=== PATIENT | female | born 1985 | race Caucasian/White ===

== ENCOUNTER 2018-02-18 05:53 | Inpatient (IN) | payer BC ==
[2018-02-18] MEDS ORDERED: TERBUTALINE 1 MG/ML VIAL SQ PRN (06:04)
[2018-02-18] MEDS ORDERED: METHYLERGONOVINE 0.2 MG/ML 1 ML AMP IM PRN (06:04)
[2018-02-18] MEDS ORDERED: OXYTOCIN 10 UNIT/ML 1 ML VIAL IM PRN (06:04)
[2018-02-18] MEDS ORDERED: CARBOPROST TROMETHAMINE 250 MCG/ML 1 ML AMP IM PRN (06:04)
[2018-02-18] MEDS ORDERED: LIDOCAINE 0.5% (PF) 5 MG/ML (50 ML SDV) SQ PRN (06:04)
[2018-02-18] MEDS: LACTATED RINGERS 1,000 ML IV SCH ×3 (06:28→12:29)
[2018-02-18] MEDS: OXYTOCIN 20 UNITS/1000 ML NS 1,000 ML IV SCH ×2 (06:32→16:36)
[2018-02-18 06:44] LABS: Basophils % (A) 0 %; Eosinophils # (A) 0.1 k/uL (0-0.7); Eosinophils % (A) 1 %; HCT 35.4 % (34.0-46.0); HGB 12.2 gm/dL (11.4-16.0); Lymphocytes # (A) 2.4 k/uL (1.0-4.8); Lymphocytes % (A) 20 %; MCHC 34.5 g/dL (31.0-37.0); MCV 92.9 fL (80.0-100.0); Mean Platelet Volume 7.2; Monocytes # (A) 0.4 k/uL (0-1.0); Monocytes % (A) 3 %; Neutrophils # (A) 8.9 k/uL (1.3-7.7); Neutrophils % (A) 74 %; Platelet Count 190 k/uL (150-450); RBC 3.81 m/uL (3.80-5.40); RDW 14.4 % (11.5-15.5)
[2018-02-18 07:46] VITALS: BMI 36.2
--- NOTE | 2018-02-18 09:03 | P.HPOB ---
History of Present Illness H&P Date: 02/18/18 Chief Complaint: IUP @ 39 6/7 weeks This is a 32-year-old 4 para 10-1 at 39-6/7 weeks estimated due date of 1218. Patient presents to labor and delivery for elective induction of labor. Patient has a history of macrosomia. 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 Patient has been receiving routine care with myself since 8 weeks of gestation. Estimated due date is based on last menstrual period equal to a first trimester ultrasound. On blood work showed a blood type of O+, rubella immune, RPR nonreactive, hepatitis B surface antigen negative, HIV negative, she did pass her 3-hour gestational diabetes screen. Group B strep was negative on 01/21 Review of Systems Constitutional: Denies chills, Denies fatigue, Denies fever Ears, nose, mouth and throat: Denies headache Cardiovascular: Reports leg edema Respiratory: Denies cough, Denies dyspnea Gastrointestinal: Denies constipation, Denies diarrhea, Denies nausea, Denies vomiting Genitourinary: Reports Past Medical History Past Medical History: No Reported History Additional Past Medical History / Comment(s): Patient borderline diabetic History of Any Multi-Drug Resistant Organisms: None Reported Past Surgical History: Appendectomy, Hernia Repair Past Anesthesia/Blood Transfusion Reactions: No Reported Reaction Smoking Status: Former smoker Past Alcohol Use History: None Reported Past Drug Use History: None Reported - Past Family History Father Family Medical History: Diabetes Mellitus Medications and Allergies Home Medications Medication Instructions Recorded Confirmed Type Ferrous Gluconate [Iron] 236 mg PO ONCE 02/18/18 02/18/18 History 78/Iron/Folate 1/Dha 1 tab PO ONCE 02/18/18 02/18/18 History [Prenate Dha Softgel] Allergies Allergy/AdvReac Type Severity Reaction Status Date / Time No Known Allergies Allergy Verified 02/18/18 06:02 Exam Osteopathic Statement: *. No significant issues noted on an osteopathic structural exam other than those noted in the History and Physical/Consult. Vital Signs Temp Pulse Resp BP Pulse Ox 02/18/18 06:02 97.2 F L 90 16 140/86 97 Intake and Output 02/17/18 02/18/18 02/18/18 22:59 06:59 14:59 Other: Weight 117.934 kg Tardive physical exam was done this morning. Gen. this is a well-nourished well -developed female in no acute distress. She has nonlabored breathing and lungs are clear to auscultation bilaterally, heart is noted to have regular rate and rhythm, abdomen is gravid and appropriate for gestational age, extremities are noted to have trace edema, heart tones were noted to be reassuring with moderate variability she is sunil every 3 minutes, on vaginal exam her cervix is to be 4/80/-2 amniotomy is performed and clear fluid was obtained. Results Result Diagrams: 02/18/18 06:20 Abnormal Lab Results - Last 24 Hours (Table) 02/18/18 Range/Units 06:20 WBC 12.0 H (3.8-10.6) k/uL Neutrophils # 8.9 H (1.3-7.7) k/uL Assessment and Plan (1) Term Current Visit: Yes Status: Acute Code(s): Z34.80 - ENCOUNTER FOR SUPRVSN OF NORMAL , UNSP TRIMESTER SNOMED Code(s): 91490832 Plan: Patient is admitted for Pitocin induction of labor, she does desire epidural for pain control throughout labor we will call anesthesia once she requests this. Anticipate spontaneous vaginal delivery later today.
[2018-02-18] MEDS ORDERED: fentaNYL (PF) 50 MCG/ML 5 ML AMP ONE (11:49)
[2018-02-18] MEDS ORDERED: SODIUM CHLORIDE 0.9% 100 ML BAG ONE (11:49)
[2018-02-18] MEDS ORDERED: ROPIVACAINE 5MG/ML 20ML VIAL ONE (11:49)
[2018-02-18] MEDS ORDERED: diphenhydrAMINE 50 MG/ML 1 ML VIAL IVP PRN ×2 (14:59)
[2018-02-18] MEDS ORDERED: HYDROCORTISONE 2.5% RECTAL CREAM 30 GM TUBE RECTAL PRN (14:59)
[2018-02-18] MEDS ORDERED: ACETAMINOPHEN TAB 325 MG TAB PO PRN (14:59)
[2018-02-18] MEDS ORDERED: ZOLPIDEM 5 MG TAB PO PRN (14:59)
[2018-02-18] MEDS ORDERED: BENZOCAINE/MENTHOL SPRAY 1 GM/SPRAY AEROSOL TOPICAL PRN (14:59)
[2018-02-18] MEDS ORDERED: diphenhydrAMINE 25 MG CAP PO PRN (14:59)
[2018-02-18] MEDS ORDERED: LANOLIN CREAM 5 GM TUBE TOPICAL PRN (14:59)
[2018-02-18] MEDS ORDERED: SIMETHICONE 80 MG CHEWABLE PO PRN (14:59)
[2018-02-18] MEDS ORDERED: WITCH HAZEL 1 EACH MED..PAD TOPICAL PRN (14:59)
[2018-02-18] MEDS ORDERED: diphenhydrAMINE 50 MG CAP PO PRN (14:59)
[2018-02-18] MEDS ORDERED: OXYTOCIN 20 UNITS/1000 ML NS 1,000 ML IV SCH (15:00)
--- NOTE | 2018-02-18 15:04 | P.PROBDLV ---
Vaginal Delivery Note - . Vaginal Delivery Note: This is a very pleasant 32-year-old 4 para 10-1 at 39-6/7 weeks that presented to labor and delivery for elective induction of labor. Patient is a history of 8 lbs. 11 oz. baby and significant vaginal laceration she selected delivery today. Patient was admitted to labor and delivery Pitocin induction of labor was begun. After regular contractions were noted patient underwent amniotomy and clear fluid was obtained. Patient progressed through labor eventually becoming uncomfortable requesting an epidural. The epidural was placed by anesthesia without difficulty. Patient progressed to complete began pushing and had a normal spontaneous vaginal delivery of a viable male at 1436 with a weight of 8 lbs. 11 oz., Apgars of 8 and 9 at one and 5 minutes respectively. Infant did note a loose nuchal 2 which was delivered through. Afterwards the umbilical cord was then doubly clamped and cut after a 2 minute delay, the placenta was then delivered spontaneously intact with a three-vessel cord. The third degree vaginal laceration was noted and repaired in the usual fashion with 3-0 Rapide. Afterwards a rectal exam was performed and normal sphincter tone/rectal exam was appreciated. Uterus was noted to be firm and below the umbilicus at this time. Estimated blood loss 300 mL Patient and tolerated delivery well and are resting comfortably.
[2018-02-18] MEDS ORDERED: PRENATAL VIT-IRON-FOLIC ACID 1 EACH CAP PO ONE (15:15)
[2018-02-18] MEDS: SENNOSIDES-DOCUSATE SODIUM 1 EACH TAB PO SCH (19:37)
[2018-02-18] MEDS: IBUPROFEN 600 MG TAB PO PRN (19:37)
[2018-02-18 21:26] LABS: Basophils % (A) 0 %; Eosinophils % (A) 0 %; HCT 29.7 % (34.0-46.0); Lymphocytes # (A) 1.9 k/uL (1.0-4.8); Lymphocytes % (A) 13 %; MCH 30.8 pg (25.0-35.0); MCHC 33.2 g/dL (31.0-37.0); Mean Platelet Volume 7.4; Monocytes # (A) 0.5 k/uL (0-1.0); Monocytes % (A) 3 %; Neutrophils % (A) 82 %; Platelet Count 171 k/uL (150-450); RDW 14.5 % (11.5-15.5); WBC 14.7 k/uL (3.8-10.6)
[2018-02-18 21:31] LABS: HGB 9.9 gm/dL (11.4-16.0)
[2018-02-19] MEDS: IBUPROFEN 600 MG TAB PO PRN ×3 (04:19→15:56)
[2018-02-19 07:10] LABS: Basophils % (A) 0 %; Eosinophils # (A) 0.1 k/uL (0-0.7); Eosinophils % (A) 1 %; HGB 9.5 gm/dL (11.4-16.0); Lymphocytes % (A) 17 %; MCH 31.7 pg (25.0-35.0); MCHC 33.8 g/dL (31.0-37.0); MCV 93.8 fL (80.0-100.0); Mean Platelet Volume 7.5; Monocytes # (A) 0.5 k/uL (0-1.0); Monocytes % (A) 4 %; Neutrophils # (A) 9.2 k/uL (1.3-7.7); Neutrophils % (A) 77 %; Platelet Count 147 k/uL (150-450); RBC 2.98 m/uL (3.80-5.40); RDW 14.6 % (11.5-15.5)
[2018-02-19 08:41] VITALS: BP 139/91; PULSE 87; RESP 18; TEMP 97.8
[2018-02-19] MEDS: SENNOSIDES-DOCUSATE SODIUM 1 EACH TAB PO SCH (10:24)
[2018-02-19] MEDS ORDERED: PRENATAL VIT-IRON-FOLIC ACID 1 EACH CAP PO SCH (12:00)
--- NOTE | 2018-02-19 12:42 | P.DS ---
Providers Date of admission: 02/18/18 05:53 Expected date of discharge: 02/19/18 Attending physician: Terri Munoz Primary care physician: Stated None - Discharge Diagnosis(es) (1) Term Current Visit: Yes Status: Acute (2) Status post normal vaginal delivery Current Visit: Yes Status: Acute (3) Third degree perineal laceration during delivery Current Visit: Yes Status: Acute (4) Acute blood loss anemia Current Visit: Yes Status: Acute Hospital Course: This is a very pleasant 32-year-old 4 para 03/05/2001 at 39-6/7 weeks that presents to labor and delivery for elective induction of labor. Patient has a history of a 8 lbs. 11 oz. infant with a fourth degree laceration. Patient presented for elective induction of labor secondary to this. Patient was admitted to labor and delivery Pitocin induction of labor was begun patient progressed through labor once regular contractions were noted amniotomy was performed clear fluid was obtained. Patient became uncomfortable requesting an epidural which was placed by anesthesia without difficulty. Patient progressed to complete began pushing and had a normal spontaneous vaginal delivery of a viable male infant at 1436 weight of 8 lbs. 11 oz. with Apgars of 8 and 9 at one and 5 minutes respectively. Patient did sustain a third degree vaginal laceration which was repaired in usual fashion. Patient's hemoglobin was noted to decrease from 12-9.5. Patient is feeling well and wishes discharge home at 24 hours. She is ambulating and voiding without difficulty. She is tolerating a regular diet without nausea or vomiting. Her lochia is moderate at this time. Her pain is well-controlled with oral pain medication. Patient Condition at Discharge: Good Plan - Discharge Summary New Discharge Prescriptions: No Action 78/Iron/Folate 1/Dha [Prenate Dha Softgel] 1 tab PO ONCE Ferrous Gluconate [Iron] 236 mg PO ONCE Discharge Medication List Ferrous Gluconate [Iron] 236 mg PO ONCE 02/18/18 [History] 78/Iron/Folate 1/Dha [Prenate Dha Softgel] 1 tab PO ONCE 02/18/18 [ History] Follow up Appointment(s)/Referral(s): Terri Munoz DO [Doctor of Osteopathic Medicine] - 4 Weeks Patient Instructions/Handouts: Vaginal Delivery (DC), Vaginal Delivery (GEN) Discharge Disposition: HOME SELF-CARE
== END 2018-02-19 16:15 | disposition home or self-care (01) | DRG 768 ==
LOC: 4FBP 05:53
PROVIDERS: ADMIT Obstetrics & Gynecology Obstetrics; ATTEND Obstetrics & Gynecology Obstetrics
PROC: 00HU33Z Insertion of Infusion Device into Spinal Canal, Percutaneous Approach (ICD-10-PCS; principal; 2018-02-18)
PROC: 3E0R3NZ Introduction of Analgesics, Hypnotics, Sedatives into Spinal Canal, Percutaneous Approach (ICD-10-PCS; principal; 2018-02-18)
PROC: 10E0XZZ Delivery of Products of Conception, External Approach (ICD-10-PCS; principal; 2018-02-18)
PROC: 0DQR0ZZ Repair Anal Sphincter, Open Approach (ICD-10-PCS; principal; 2018-02-18)
PROC: 3E033VJ Introduction of Other Hormone into Peripheral Vein, Percutaneous Approach (ICD-10-PCS; principal; 2018-02-18)
PROC: 10907ZC Drainage of Amniotic Fluid, Therapeutic from Products of Conception, Via Natural or Artificial Opening (ICD-10-PCS; principal; 2018-02-18)
DX: O98.32 Other infections with a predominantly sexual mode of transmission complicating childbirth (principal); Z37.0 Single live birth; D62 Acute posthemorrhagic anemia; O70.20 Third degree perineal laceration during delivery, unspecified; A60.00 Herpesviral infection of urogenital system, unspecified; O69.81X0 Labor and delivery complicated by cord around neck, without compression, not applicable or unspecified; O99.02 Anemia complicating childbirth; Z3A.39 39 weeks gestation of pregnancy; Z83.3 Family history of diabetes mellitus; Z87.891 Personal history of nicotine dependence
CPT/HCPCS: 85025; 86850; 86900; 86901

== ENCOUNTER → 2018-07-03 | Outpatient (CLI) | payer BC ==
--- NOTE | 2018-07-03 14:26 | XR ---
Cervical spine HISTORY: Neck pain 5 views of the cervical spine Cervical vertebral bodies show preserved height and bone mineralization. There is minimal retrolisthe sis grade 1 C5-6, there is associated loss of disc height and spondylosis at C4-5, C5-6 and C6-7. Rev ersal the normal cervical lordosis could be due to muscle spasm. Prevertebral soft tissues are normal . Multilevel facet arthropathy changes are present. Oblique images is not optimal to assess for tabitha inal encroachment, foraminal encroachment is suspected due to lateral extension endplate to C5-6 bila terally. IMPRESSION: Degenerative disc disease, facet arthropathy, consider cervical MRI as indicated.
--- NOTE | 2018-07-03 14:28 | XR ---
Right shoulder HISTORY: Right shoulder pain 3 views of the right shoulder Bone mineralization, joint spaces and alignment are maintained. Right lung apex as visualized is norm al. IMPRESSION: No fracture or dislocation.
== END ==
LOC: RADXRMAIN 11:52
PROVIDERS: ATTEND Nurse Practitioner Family
DX: M50.30 Other cervical disc degeneration, unspecified cervical region (principal); M46.92 Unspecified inflammatory spondylopathy, cervical region; M25.511 Pain in right shoulder
CPT/HCPCS: 72050

== ENCOUNTER → 2018-07-10 | Outpatient (CLI) | payer BC ==
--- NOTE | 2018-07-10 11:04 | XR ---
EXAMINATION TYPE: XR knee complete RT DATE OF EXAM: 07/10/2018 COMPARISON: NONE HISTORY: Pain TECHNIQUE: Four views are submitted. FINDINGS: Joint spaces are preserved. Osseous structures are intact. No acute fracture seen. IMPRESSION: 1. No acute fracture or dislocation.
== END | disposition home or self-care (01) ==
LOC: RADXRMAIN 10:24
PROVIDERS: ATTEND Nurse Practitioner Family
DX: M25.561 Pain in right knee (principal)

== ENCOUNTER → 2018-07-23 | Outpatient (CLI) | payer BC, OTHER ==
--- NOTE | 2018-07-24 08:48 | MR ---
EXAMINATION TYPE: MR cervical spine wo con DATE OF EXAM: 07/23/2018 COMPARISON: Cervical spine x-rays dated 07/03/2017 HISTORY: Neck pain, Rt shoulder numbness/tingling TECHNIQUE: Multiplanar, multisequence images of the cervical spine were acquired. FINDINGS: As noted on the prior radiographs there is slight reversal of usual cervical lordosis. Mild mucosal thickening of the sphenoid sinus is seen. Vertebral bodies maintain normal vertebral body he ights and alignment. Schmorl's node is seen of the superior endplate of C7. The cervical cord is over all homogeneous in signal throughout. C2-C3: No evidence for degenerative disc disease. No disc bulge/herniation or protrusion. No Canal stenosis. Foramina are patent bilaterally. C3-C4: There is a small central disc osteophyte complex and minimal left uncovertebral hypertrophy re sulting in minimal left neural foraminal narrowing. No spinal canal stenosis nor right neural foramin al narrowing. C4-C5: There is a right paracentral disc herniation that creates narrowing of the ventral subarachnoi d space. There is also minimal uncovertebral hypertrophy. This results in very mild spinal canal sten osis without neural foraminal narrowing. C5-C6: There is a right foraminal disc herniation, broad-based disc bulge, uncovertebral hypertrophy and mild facet arthropathy creating severe right neural foraminal narrowing and right lateral spinal canal stenosis. Left neural foramen is mildly narrowed. C6-C7: There is a left paracentral disc herniation superimposed on a broad-based disc bulge with liga mentum flavum buckling and uncovertebral hypertrophy creating moderate left neural foraminal narrowin g, mild right neural foraminal narrowing and mild spinal canal stenosis. C7-T1: No evidence for degenerative disc disease. No disc bulge/herniation or protrusion. No Canal stenosis. Foramina are patent bilaterally. IMPRESSION: 1. Right foraminal disc herniation at C5-C6 impinging on the exiting nerve root creating severe right neural foraminal narrowing and mild right lateral spinal canal stenosis. 2. Right paracentral disc herniation at C4-C5 creating mild spinal canal stenosis without neural fora mackenzie narrowing. 3. Small central disc osteophyte complex at C3-C4 and degenerative disc disease resulting in minimal left neural foraminal narrowing. 4. Left paracentral disc herniation at C6-C7 creating moderate left neural foraminal narrowing, mild right neural foraminal narrowing and mild spinal canal stenosis. 5. Slight reversal usual cervical lordosis may be on the basis of muscular sprain/spasm.
== END | disposition home or self-care (01) ==
LOC: RADMRIMAIN 17:38
PROVIDERS: ATTEND Nurse Practitioner Family
DX: M54.2 Cervicalgia (principal)
CPT/HCPCS: 72141

== ENCOUNTER → 2019-10-16 | Outpatient (CLI) | payer BC, OTHER ==
--- NOTE | 2019-10-17 04:04 | MR ---
EXAMINATION TYPE: MR cervical spine wo con DATE OF EXAM: 10/16/2019 COMPARISON: None HISTORY: Neck pain, headaches, left arm weakness x 7 yrs Multiplanar multiecho imaging of the cervical spine was performed with no contrast. Cervical vertebra have normal alignment. The posterior elements are intact. There is mild posterior d isc bulging at levels from C4 to C7. There is a larger disc herniation at C6-7 and the spinal canal i s narrowed to 6.5 mm. Cervical spinal cord shows no edema. Stem is intact. There is no compression fracture. There is no evidence of cervical paraspinal mass. IMPRESSION: Mild posterior disc herniations and bulging as above there is more noticeable at C6-7. 6.5 mm spinal stenosis at C6-7.
== END | disposition home or self-care (01) ==
LOC: RADMRIMAIN 17:09
PROVIDERS: ATTEND Family Medicine
DX: M48.02 Spinal stenosis, cervical region (principal); M50.123 Cervical disc disorder at C6-C7 level with radiculopathy
CPT/HCPCS: 72141

== ENCOUNTER → 2023-01-25 | Outpatient (CLI) | payer BC ==
--- NOTE | 2023-01-25 10:39 | USB ---
Reason for Exam: Clinical finding. Patient History: Menarche at age 10. First Full-Term at age 28. Patient has history of breast feeding. Patient used Hormonal Contraceptives for 5 years. Risk Values: Yanna 5 year model risk: 0.6%. NCI Lifetime model risk: 12.2%. Technique: Method: Whole Breast Handheld. Prior Study Comparison: 04/16/2022 Bilateral MG 3D screening mammo w/cad, [facility]IN [facility]. Findings: The whole breast of the left breast, the axilla of the left breast and the retroareolar of the left breast were scanned. Small simple cyst noted at the left 2:00 position 5 cm from the nipple measures 6 mm. No solid masses identified. Clinical correlation recommended with regards to breast pain.. Overall Assessment: Benign, BI-RAD 2 Management: Screening Mammogram of both breasts in 1 year. A clinical breast exam by your physician is recommended on an annual basis and results should be correlated with mammographic findings. This exam should not preclude additional follow-up of suspicious palpable abnormalities. Results were given to the patient verbally at the time of exam. Electronically signed and approved by: Zack Almanzar M.D. Radiologis
--- NOTE | 2023-01-25 10:40 | MM ---
Reason for Exam: Clinical finding. Last screening mammogram was performed 9 month(s) ago. Indicated Problems: Pain of the left side (Focal) for 1 Year(s) : pain over 1 year uoq. Patient History: Menarche at age 10. First Full-Term at age 28. Patient has history of breast feeding. Patient used Hormonal Contraceptives for 5 years. Risk Values: Yanna 5 year model risk: 0.6%. NCI Lifetime model risk: 12.2%. Prior Study Comparison: 04/16/2022 Bilateral MG 3D screening mammo w/cad, [facility]. Tissue Density: The breast tissue is heterogeneously dense. This may lower the sensitivity of mammography. Findings: Analyzed By CAD. No evidence for mass or distortion. No suspicious mitral calcifications. Overall Assessment: Negative, BI-RAD 1 Management: Diagnostic Breast Ultrasound of the left breast. . Results were given to the patient verbally at the time of exam. Patient should continue monthly self-breast exams. A clinical breast exam by your physician is recommended on an annual basis. This exam should not preclude additional follow-up of suspicious palpable abnormalities. Note on Yanna scores and lifetime risk: 1. A Yanna score greater than 3% is considered moderate risk. If this is the case, consider specialist referral to assess eligibility for a risk reducing agent. 2. If overall lifetime risk for the development of breast cancer is 20% or higher, the patient may qualify for future screening with alternating mammogram and breast MRI. Electronically signed and approved by: Zack Almanzar M.D. Radiologis
== END | disposition home or self-care (01) ==
LOC: RADMAMWWP 09:46
PROVIDERS: ATTEND Family Medicine
DX: R92.333 Mammographic heterogeneous density, bilateral breasts (principal); N64.4 Mastodynia
CPT/HCPCS: 77062; 77066

== ENCOUNTER 2024-03-16 07:48 | Day surgery (SDC) | payer BC ==
[~2024-03-16 07:48] MED LIST: LIDOCAINE 1% (10MG/ML) FOR IV START INTRADERMA PRN; droPERidol 5 MG/2 ML VIAL IVP ONE
[2024-03-16] MEDS: IV FLUID CONTINUATION 1,000 ML IV ONE (08:10)
[2024-03-16] MEDS: HEPARIN SODIUM,PORCINE 5,000 UNIT/ML 1 ML VIAL SQ PRN (08:18)
[2024-03-16] MEDS: ACETAMINOPHEN TAB 500 MG TAB PO PRN (08:18)
[2024-03-16] MEDS: DEXAMETHASONE SOD PHOSPHATE 4 MG/ML 1 ML VIAL IV ONE (08:18)
[2024-03-16] MEDS: LACTATED RINGERS 1,000 ML IV SCH (08:18)
[2024-03-16] MEDS: ONDANSETRON 4 MG/2 ML VIAL IVP ONE (08:19)
[2024-03-16] MEDS: FAMOTIDINE 20 MG/2 ML VIAL IV STA (08:19)
[2024-03-16] MEDS ORDERED: ROCURONIUM 10 MG/ML (5 ML VIAL) IV ONE (08:58)
[2024-03-16] MEDS ORDERED: PROPOFOL 10 MG/ML 20 ML VIAL IV ONE (08:58)
[2024-03-16] MEDS ORDERED: NEOSTIGMINE 1 MG/ML 10 ML VIAL ONE (08:58)
[2024-03-16] MEDS ORDERED: MIDAZOLAM 2 MG/2 ML VIAL ONE (08:58)
[2024-03-16] MEDS ORDERED: fentaNYL (PF) 50 MCG/ML 2 ML AMP ONE (08:58)
[2024-03-16] MEDS ORDERED: LIDOCAINE 1% INJ 10MG/ML (20 ML MDV) ONE (08:58)
[2024-03-16] MEDS ORDERED: SUCCINYLCHOLINE CHLORIDE 200 MG/10 ML VIAL IV ONE (08:58)
[2024-03-16] MEDS ORDERED: GLYCOPYRROLATE 0.2 MG/ML 2 ML VIAL ONE (08:58)
[2024-03-16] MEDS: BUPIVACAINE (PF) 0.25% 30 ML VIAL SQ ONE (09:29)
--- NOTE | 2024-03-16 10:03 | P.OP ---
Date of Procedure: 03/16/24 Procedure(s) Performed: PREOPERATIVE DIAGNOSIS: Chronic cholecystitis POSTOPERATIVE DIAGNOSIS: Same PROCEDURE: Laparoscopic cholecystectomy SURGEON: Yaneth EBL: Minimal see anesthesia record ANESTHESIA: Gen. COMPLICATIONS: None OPERATIVE PROCEDURE: The patient was brought and placed on the operating room table in the supine position. The patient was placed under general anesthesia at that time. The abdomen was prepped and draped in the usual sterile fashion. A small vertical infraumbilical incision was made. The fascia was grasped with the Jaclyn forceps. The fascia was retracted anteriorly. The Veress needle was advanced into the peritoneal cavity. The saline drop test was normal. Insufflation took place up to 15 mmHg. A 5 mm optical trocar was advanced and the peritoneal cavity. 2 additional 5 mm trochars were placed in the right upper quadrant under direct visualization. A 12 mm trocar was advanced into the epigastric incision site. The gallbladder was retracted superiorly and laterally. The peritoneum overlying the infundibulum was bluntly dissected. The patient's cystic duct was visualized. The junction between the cystic duct common and hepatic duct was identified. The critical view of safety was achieved after blunt dissection. The cystic duct was then divided after placement of 3 12 mm clips on the patient's side and one on the specimen side. The cystic artery was identified and clipped as well. A small vessel was seen along the gallbladder fossa and clipped as well. The gallbladder was then removed from the liver bed using electrocautery. The gallbladder was then removed from the epigastric trocar site with an Endo Catch bag. The gallbladder fossa was irrigated with saline. There was no evidence of any bleeding or biliary drainage seen. The fascia at the 12 millimeter site was closed using a Dejan-Sb 0 Vicryl stitch. The trochars were then removed. The skin at all 4 sites was closed using a 4-0 Monocryl stitch. Skin glue was utilized on the incision sites. At the end of this procedure the sponge and needle counts were correct. DISPOSITION: Stable to the recovery room
[2024-03-16 10:34] VITALS: TEMP 96.9
[2024-03-16] MEDS: HYDROmorphone 0.5 MG/0.5 ML SYRINGE IVP PRN (10:43)
[2024-03-16] MEDS: IV FLUID CONTINUATION 500 ML IV ONE (11:16)
[2024-03-16 11:37] VITALS: RESP 16
[2024-03-16 11:49] VITALS: BP 130/84; PULSE 56
[2024-03-16] MEDS ORDERED: ACETAMINOPHEN TAB 325 MG TAB PO SCH (12:00)
[2024-03-16] MEDS ORDERED: IBUPROFEN 600 MG TAB PO SCH (13:00)
== END 2024-03-16 12:20 | disposition home or self-care (01) ==
LOC: OR 07:48
PROVIDERS: ATTEND Surgery
DX: K80.10 Calculus of gallbladder with chronic cholecystitis without obstruction (principal); Z90.89 Acquired absence of other organs; Z79.1 Long term (current) use of non-steroidal anti-inflammatories (NSAID)
CPT/HCPCS: 47562; 81025; J2250; J0330; J1644; J1100; J2710; J0690; J2405; J2003; J3010; J3490; J2704; J1171; J0665; J1596; 88304

== ENCOUNTER → 2024-09-01 | Outpatient (CLI) | payer BC ==
--- NOTE | 2024-09-01 13:11 | MM ---
Reason for Exam: Screening (asymptomatic). Last mammogram was performed 1 year(s) and 8 month(s) ago. Patient History: Menarche at age 10. First Full-Term at age 28. Premenopausal. Patient has history of breast feeding. Patient used Hormonal Contraceptives for 5 years. Last menstrual period: 08/25/2024 Risk Values: Yanna 5 year model risk: 0.7%. NCI Lifetime model risk: 12.1%. Prior Study Comparison: 04/16/2022 Bilateral MG 3D screening mammo w/cad, [facility]. 01/25/2023 Bilateral MG 3D diag mammo w/cad [facility], [facility]. Tissue Density: The breasts are heterogeneously dense, which may obscure small masses. Findings: Analyzed By CAD. There is no suspicious group of microcalcifications or new suspicious mass in either breast. Overall Assessment: Negative, BI-RAD 1 Management: Screening Mammogram of both breasts in 1 year. Patient should continue monthly self-breast exams. A clinical breast exam by your physician is recommended on an annual basis. This exam should not preclude additional follow-up of suspicious palpable abnormalities. Note on Yanna scores and lifetime risk: 1. A Yanna score greater than 3% is considered moderate risk. If this is the case, consider specialist referral to assess eligibility for a risk reducing agent. 2. If overall lifetime risk for the development of breast cancer is 20% or higher, the patient may qualify for future screening with alternating mammogram and breast MRI. [facility], , 09/01/2024 1:09 PM. Electronically signed and approved by: Fatuma Pereira M.D. Radiologist
== END | disposition home or self-care (01) ==
LOC: RADMAMWWP 09:30
PROVIDERS: ATTEND Obstetrics & Gynecology Obstetrics
DX: Z12.31 Encounter for screening mammogram for malignant neoplasm of breast (principal); R92.333 Mammographic heterogeneous density, bilateral breasts; Z92.0 Personal history of contraception
CPT/HCPCS: 77063; 77067